=== PATIENT | female | born 1945 | race Caucasian/White ===

== ENCOUNTER → 2017-03-25 | Outpatient (CLI) | payer MEDICARE, OTHER | END | disposition home or self-care (01) | LOC: GMAL 11:16 | PROVIDERS: ATTEND Family Medicine | DX: N39.0 Urinary tract infection, site not specified (principal) ==

== ENCOUNTER → 2017-03-26 | Outpatient (CLI) | payer MEDICARE, OTHER ==
--- NOTE | 2017-03-27 09:53 | MRI ---
EXAM DESCRIPTION: Lumbar Spine w/o Contrast CLINICAL HISTORY: RADICULOPATHY COMPARISON: Today's exam is compared to March 18, 2011 TECHNIQUE: MRI of the lumbar spine is performed according to our usual protocol with axial and sagittal multi sequence imaging. FINDINGS: Normal alignment of the lumbar spine is noted. There is no acute fracture or destructive osseous lesion. The conus medullaris terminates normally. L1-2: No spinal canal or neuroforaminal narrowing. L2-3: Mild facet degeneration and ligamentum flavum thickening. 2 mm circumferential disc bulge. The midline diameter spinal canal is adequate at 13 mm. Bilateral neuroforamen are unremarkable. L3-4: Facet degeneration. Cystic degeneration ligamentum flavum on the right. 2 mm circumferential disc bulge. The midline diameter of the spinal canal is narrowed to 11 mm. Bilateral neuroforamen are unremarkable. L4-5: Facet degeneration, ligamentum flavum thickening and a 2 mm circumferential disc bulge. Midline diameter spinal canal is narrowed 8.8 mm. Bilateral neuroforamen are unremarkable. L5-S1: Moderate facet degeneration and ligamentum flavum thickening. There is a circumferential disc bulge with a more pronounced right paracentral component. This component likely contact of the anterior margin of the descending right S1 nerve root. Midline diameter spinal canal is adequate at 11 mm. Bilateral neuroforamen are adequate. IMPRESSION: 1. Today's exam demonstrates degenerative change as described above with spinal canal narrowing only at L4-5. 2. No spinal canal narrowing at any level. 3. There is a right paracentral disc protrusion at L5-S1 with annular tear. This may contact the anterior margin of the descending S1 nerve root and could result in a radiculopathy if the patient is symptomatic. Electronically signed by: Joseph Delatorre MD 03/27/2017 9:41 AM CDT
== END ==
LOC: MRI 09:58
PROVIDERS: ATTEND Family Medicine
DX: M51.16 Intervertebral disc disorders with radiculopathy, lumbar region (principal)

== ENCOUNTER → 2017-03-27 | Outpatient (CLI) | payer MEDICARE, OTHER | LOC: LAB.O 14:35 | PROVIDERS: ATTEND Family Medicine | DX: G90.09 Other idiopathic peripheral autonomic neuropathy (principal); R53.82 Chronic fatigue, unspecified; M25.50 Pain in unspecified joint ==

== ENCOUNTER → 2017-05-08 | Outpatient (CLI) | payer MEDICARE, OTHER | LOC: GMAL 10:53 | PROVIDERS: ATTEND Family Medicine | DX: D51.3 Other dietary vitamin B12 deficiency anemia (principal) ==

== ENCOUNTER → 2017-08-07 | Outpatient (CLI) | payer MEDICARE, OTHER | END | disposition home or self-care (01) | LOC: GMAL 14:05 | PROVIDERS: ATTEND Family Medicine | DX: D53.9 Nutritional anemia, unspecified (principal) ==

== ENCOUNTER → 2017-09-10 | Outpatient (CLI) | payer MEDICARE, OTHER | LOC: GMA 20:14 | PROVIDERS: ATTEND Nurse Practitioner Family | DX: N39.0 Urinary tract infection, site not specified (principal) ==

== ENCOUNTER → 2018-02-07 | Outpatient (CLI) | payer MEDICARE, OTHER | LOC: GMATM 15:24 | PROVIDERS: ATTEND Nurse Practitioner Family | DX: N39.0 Urinary tract infection, site not specified (principal) ==

== ENCOUNTER → 2018-02-10 | Outpatient (CLI) | payer MEDICARE, OTHER | LOC: LAB.O 14:55 | PROVIDERS: ATTEND Internal Medicine Sports Medicine | DX: M43.09 Spondylolysis, multiple sites in spine (principal); M25.50 Pain in unspecified joint; M05.09 Felty's syndrome, multiple sites; Z79.899 Other long term (current) drug therapy; E55.9 Vitamin D deficiency, unspecified ==

== ENCOUNTER → 2018-02-19 | Outpatient (CLI) | payer MEDICARE, OTHER | LOC: GMATM 17:53 | PROVIDERS: ATTEND Nurse Practitioner Family | DX: N39.0 Urinary tract infection, site not specified (principal) ==

== ENCOUNTER → 2018-03-12 | Outpatient (CLI) | payer MEDICARE, OTHER | LOC: GMATM 17:19 | PROVIDERS: ATTEND Nurse Practitioner Family | DX: N39.0 Urinary tract infection, site not specified (principal) ==

== ENCOUNTER → 2018-03-25 | Outpatient (CLI) | payer MEDICARE, OTHER | LOC: GMATM 17:49 | PROVIDERS: ATTEND Nurse Practitioner Family | DX: N39.0 Urinary tract infection, site not specified (principal) ==

== ENCOUNTER → 2018-04-13 | Outpatient (CLI) | payer MEDICARE, OTHER | LOC: GMAL 11:29 | PROVIDERS: ATTEND Family Medicine | DX: N39.0 Urinary tract infection, site not specified (principal) ==

== ENCOUNTER → 2018-05-04 | Outpatient (CLI) | payer MEDICARE, OTHER | LOC: GMAL 12:08 | PROVIDERS: ATTEND Family Medicine | DX: N39.0 Urinary tract infection, site not specified (principal) ==

== ENCOUNTER → 2018-05-11 | Outpatient (CLI) | payer MEDICARE, OTHER | LOC: GMAL 11:35 | PROVIDERS: ATTEND Family Medicine | DX: E53.8 Deficiency of other specified B group vitamins (principal); R53.83 Other fatigue; E55.9 Vitamin D deficiency, unspecified ==

== ENCOUNTER → 2018-05-18 | Outpatient (CLI) | payer MEDICARE, OTHER | LOC: GMAL 16:59 | PROVIDERS: ATTEND Family Medicine | DX: N39.0 Urinary tract infection, site not specified (principal) ==

== ENCOUNTER → 2019-05-20 | Outpatient (CLI) | payer MEDICARE, OTHER | LOC: GMAL 11:47 | PROVIDERS: ATTEND Family Medicine | DX: E53.8 Deficiency of other specified B group vitamins (principal); R53.83 Other fatigue; E55.9 Vitamin D deficiency, unspecified; I10 Essential (primary) hypertension; Z79.899 Other long term (current) drug therapy ==

== ENCOUNTER → 2019-10-06 | Outpatient (CLI) | payer MEDICARE, OTHER ==
--- NOTE | 2019-10-06 10:48 | MRI ---
EXAM DESCRIPTION: Lumbar Spine w/o Contrast : [facility]. CLINICAL HISTORY: LUMBAR RADICULOPATHY COMPARISON: MRI scan lumbar spine noncontrast March 2017. TECHNIQUE: Multiplanar, multiple standard sequences, non contrast MRI, lumbar spine. FINDINGS: L5-S1: The disc is well visualized on axial T2 series 501, image 3. Disc minimally desiccated and bulges 4 mm in the midline contacting the thecal sac. Minimal disc space loss. Hyperintense T2 signal annular fissure in the midline posterior disc. Mild right foraminal narrowing and left foramen patent. Stable since the prior study. L4-L5: Posterior flavum ligament thickening with minimal facet arthrosis. AP canal diameter 9 mm. Disc desiccated but disc space maintained. Hypertrophic bilateral facet arthrosis and posterior ligament thickening. AP canal diameter 9 mm. Bilateral foramina are patent. No change from the prior study. L3-L4: Disc desiccation and minimal disc space loss. Trace anterolisthesis. Bilateral hypertrophic facet arthrosis and posterior ligament thickening. AP canal diameter 11 mm. Bilateral foramina are patent. No change from the prior study. L2-L3: Disc desiccation with disc space maintained. Trace anterolisthesis. No significant disc bulge. Posterior ligament thickening and bilateral hypertrophic facet arthrosis. AP canal diameter 13 mm. Bilateral foramina are patent. Stable since the prior study. L1-L2: Disc desiccation with disc space maintained. No bulging. Minimal ligament thickening posteriorly. Canal and foramina are patent. Conus terminates at this level. No change from the prior study. T12-L1: Normal signal in the disc and disc space maintained. Posterior elements unremarkable. Canal and foramina are patent. Circumscribed hyperintense T1 and T2 objects in the L2, L3, and T12 vertebral bodies consistent with hemangiomas. Stable since the prior study. No significant scoliosis. Paravertebral soft tissues unremarkable.. Distal cord normal signal and caliber. Minimal marrow edema in the STIR images of the bilateral L5 pedicles more on the left than the right. This is progressed since the prior study. Otherwise normal marrow signal in the remaining vertebral bodies and the posterior elements. Vertebral bodies are not compressed at any level. IMPRESSION: 1. Multiple levels of disc desiccation with minimal bulging. Multiple levels of posterior flavum ligament thickening and hypertrophic facet arthrosis. 2. Marrow edema in the bilateral L5 pedicles more left than right which has progressed since the prior study and could indicate stress injury. 3. Mild central canal stenosis at L4-L5 secondary to thickening and hypertrophy of the posterior elements with disc desiccated but no bulging. Bilateral foramina are patent. No change since the prior study. Electronically signed by: Ben Bustamante MD 10/06/2019 10:47 AM [facility]
== END ==
LOC: MRI 07:00
PROVIDERS: ATTEND Family Medicine
DX: M51.16 Intervertebral disc disorders with radiculopathy, lumbar region (principal); M48.061 Spinal stenosis, lumbar region without neurogenic claudication

== ENCOUNTER → 2019-11-03 | Outpatient (CLI) | payer MEDICARE, OTHER ==
--- NOTE | 2019-11-03 15:59 | MRI ---
EXAM DESCRIPTION: Lumbar Spine w/o Contrast : [facility] Resonance [facility]. CLINICAL HISTORY: PERSISTENT LUMBAR RADICULOPATHY COMPARISON: MRI scan lumbar spine without contrast 06 October 2019. TECHNIQUE: Multiplanar, multiple standard sequences, non contrast MRI, lumbar spine. FINDINGS: L5-S1: The disc is well visualized on axial T2 series 501, image 3. Disc desiccation and minimal disc space loss. Posterior broad-based disc bulge with midline hyperintense T2 annular fissure in the posterior margin stable since the prior study. Degenerative hypertrophy of the facet joints and ligaments bilaterally with AP canal diameter 10 mm. Mild bilateral foraminal narrowing. L4-L5: Disc space maintained with desiccation. Trace anterolisthesis. Moderate degenerative hypertrophy of the facet joints and ligaments impressing on the posterior thecal sac. AP canal diameter 9 mm. Not well seen on the prior study, is a 7 x 8 mm hyperintense T2-weighted/STIR-weighted mass projecting anteriorly from the left facet joint impressing on the left subarticular recess and displacing the descending left L5 nerve root medially, and impressing on the left side of the thecal sac.. Bilateral foramina are patent. L3-L4: Disc desiccation and minimal disc space loss. Trace anterolisthesis. Mild hypertrophic degenerative changes in the facet joints and posterior ligaments with impression on the posterior thecal sac. AP canal diameter 10 mm. Stable since the prior study. Circumscribed hyperintense T1 and T2 hemangioma is in the L3 vertebral body are stable. L2-L3: Disc desiccation and mild disc space loss. Minimal bulge into the left of midline. Mild degenerative hypertrophy of the posterior facet joints and ligaments. Borderline mild central canal narrowing. Bilateral foramina are patent. No change from the prior study. Circumscribed hyperintense T1 and T2 hemangioma in the L2 vertebral body stable. L1-L2: Mild disc desiccation with disc space maintained. No significant bulging. Posterior elements unremarkable. Canal and foramina are patent. Conus terminates at this level. T12-L1: Disc space maintained and normal signal in the disc with no bulging. Posterior elements unremarkable. Canal and foramina are patent. Circumscribed hyperintense T1 and T2 hemangiomas in the T12 vertebral body. Stable Schmorl's node in the superior T11 endplate. No abnormal alignment. Paravertebral soft tissues negative except for spur spinal muscle atrophy.. Distal cord normal signal and caliber. Mildly heterogeneous marrow signal in the remaining vertebral bodies and the posterior elements., Stable from the prior study Vertebral bodies are not compressed at any level. IMPRESSION: 1. L5-S1 posterior midline annular fissure, bilateral degenerative hypertrophy of the posterior ligaments and facet joints and minimal disc bulging, with borderline central canal stenosis, is unchanged from the prior study. No foraminal stenosis. 2. Degenerative hypertrophic changes in the bilateral facets and posterior ligaments at L4-5 contributing to mild central canal stenosis. Synovial cyst more likely then disc fragment, likely originating from the left facet joint, encroaching on the left subarticular recess and displacing the descending left L5 nerve root medially. No foraminal stenosis. 3. Borderline mild central canal stenosis at L3-L4 with trace anterolisthesis and disc degeneration as well as posterior degenerative hypertrophic facet joints and ligaments and mild central canal stenosis. Unchanged from the prior study. Electronically signed by: Ben Bustamante MD 11/03/2019 3:57 PM [facility]
== END ==
LOC: MRI 13:14
PROVIDERS: ATTEND Family Medicine
DX: M51.16 Intervertebral disc disorders with radiculopathy, lumbar region (principal); M51.17 Intervertebral disc disorders with radiculopathy, lumbosacral region; M48.062 Spinal stenosis, lumbar region with neurogenic claudication

== ENCOUNTER → 2019-12-01 | Outpatient (CLI) | payer MEDICARE, OTHER | LOC: GMAL 16:41 | PROVIDERS: ATTEND Family Medicine | DX: R23.3 Spontaneous ecchymoses (principal); R30.0 Dysuria ==

== ENCOUNTER → 2020-06-13 | Outpatient (CLI) | payer MEDICARE, OTHER | LOC: GMAL 14:23 | PROVIDERS: ATTEND Family Medicine | DX: R53.83 Other fatigue (principal); R39.15 Urgency of urination; I10 Essential (primary) hypertension; R60.0 Localized edema ==

== ENCOUNTER → 2020-12-28 | Outpatient (CLI) | payer MEDICARE, OTHER ==
--- NOTE | 2020-12-29 13:12 | MRI ---
EXAM DESCRIPTION: Lumbar Spine w/o Contrast : [facility] Resonance Imaging. CLINICAL HISTORY: RADICULOPATHY COMPARISON: MRI scan lumbar spine noncontrast October 2019. TECHNIQUE: Multiplanar, multiple standard sequences, non contrast MRI, lumbar spine. FINDINGS: L5-S1: The disc is well visualized on axial T2 series 501, image 3. Disc desiccation and minimal disc space loss. Posterior margin broad hyperintense T2 annular fissure. Midline protrusion 5 mm abutting the bilateral descending S1 nerve. Minimal hypertrophy in the posterior flavum ligaments and facet joints (canal elements. AP canal diameter 10 mm. Mild bilateral foraminal narrowing more on the right. Similar findings on the prior study. L4-L5: Disc desiccation. Tiny posterior bulge. Hypertrophic changes in the canal elements impressing on the posterior thecal sac. AP canal diameter 10 mm. Mild bilateral foraminal narrowing, more on the left. This has progressed since the prior study. L3-L4: Disc desiccation with disc space maintained. Tiny posterior bulge. Hypertrophy changes in the canal elements. AP canal diameter 10 mm. Mild foraminal narrowing bilaterally. Trace anterolisthesis. Circumscribed hyperintense T1 and T2 hemangioma in the vertebral body. Stable since the prior study. L2-L3: Disc desiccation with minimal bulging at the base of the right foramen. Mild narrowing of the right foramen. Minimal hypertrophic changes in the canal elements. AP canal diameter 13 mm. Left foramen is patent. L1-L2: Disc desiccation with no bulging. Disc space maintained. Minimal hypertrophic changes in the canal elements. Canal and foramina are patent. Conus terminates at this level. No interval change. T12-L1: Normal signal in the disc with disc space maintained. Canal elements are unremarkable. Canal and foramina are patent. Circumscribed hyperintense T1 and T2 hemangioma superior T12 endplate. In active Schmorl's node superior T11 endplate. No change from the prior study.. Minimal dextroscoliosis mid spine. Paravertebral soft tissues fatty muscle atrophy.. Distal cord normal signal and caliber. Heterogeneous marrow signal in the remaining vertebral bodies and the posterior elements. Vertebral bodies are not compressed at any level. IMPRESSION: 1. Multiple levels of disc desiccation. Multilevel upper trophic changes in the posterior flavum ligaments and facet joints. 2. Borderline mild central canal stenosis L5-S1, L4-L5, and L3-L4. Bilateral foraminal narrowing at L4-L5 has progressed since the prior study. 3. Posterior midline L5-S1 disc protrusion stable and abutting the bilateral descending S1 nerve roots. 4. Please refer to FINDINGS for discussion of results at specific disc space levels. Electronically signed by: Ben Bustamante MD 12/29/2020 1:11 PM [facility]
== END ==
LOC: MRI 09:45
PROVIDERS: ATTEND Family Medicine
DX: M51.16 Intervertebral disc disorders with radiculopathy, lumbar region (principal); M48.061 Spinal stenosis, lumbar region without neurogenic claudication; M51.17 Intervertebral disc disorders with radiculopathy, lumbosacral region